=== PATIENT | female | born 1955 | race Hispanic/Latino ===

== ENCOUNTER 2018-07-18 06:37 | Day surgery (SDC) | payer OTHER ==
--- NOTE | 2018-07-18 07:13 | CP.PCM.PN ---
Subjective - Date & Time of Evaluation Date of Evaluation: 07/18/18 Time of Evaluation: 07:13 - Subjective Subjective: [place] [facility] [employer] [facility] patient report reviewed, no CDS. Patient counseled on the risks of addiction, physical or psychological dependence, and overdose associated with opioid drugs and the danger of taking opioid drugs with alcohol and other central nervous system depressants, and cautioned patient on storage and disposal.
[2018-07-18] MEDS ORDERED: Midazolam 2 MG/2 ML VIAL ONE (07:16)
[2018-07-18] MEDS ORDERED: Rocuronium 10 mg/ml (5 ml) ONE (07:16)
[2018-07-18] MEDS ORDERED: Propofol 10 mg/ml Inj (20 ML) ONE (07:16)
[2018-07-18] MEDS ORDERED: Succinylcholine Chloride 20 mg/ml Syr (5 ml) IV ONE (07:17)
[2018-07-18] MEDS ORDERED: Ropivacaine 0.5% 30ML IV ONE (07:19)
[2018-07-18] MEDS ORDERED: MethylPREDNISolone Depo 40 mg/ml Inj ONE (07:28)
[2018-07-18] MEDS ORDERED: EPINEPHrine 1 mg/ml (1:1000) Inj ONE ×2 (07:28)
[2018-07-18] MEDS ORDERED: Bupivacaine 0.5% Inj(30mL) ONE (07:29)
[2018-07-18] MEDS ORDERED: Lidocaine 1% Inj (20ml) ONE (07:29)
[2018-07-18 07:43] VITALS: BMI 35.5
[2018-07-18] MEDS ORDERED: Lidocaine 4% (Laryng-O-Jet) Kit MM ONE (08:07)
[2018-07-18] MEDS ORDERED: Sodium Chloride 0.9% 10 ML IV ONE (08:23)
[2018-07-18] MEDS ORDERED: ePHEDrine 50 mg/ml Inj ONE (08:23)
[2018-07-18] MEDS ORDERED: Dexamethasone 4 mg/1 ml ONE (08:38)
[2018-07-18] MEDS ORDERED: Lactated Ringer's 1,000 ML IV ONE (09:15)
[2018-07-18] MEDS ORDERED: Albuterol HFA 90 mcg/actuation (8 g) ONE (09:32)
[2018-07-18] MEDS ORDERED: Neostigmine 1:1000 (1 mg/ml) Inj ONE (10:02)
[2018-07-18] MEDS ORDERED: Morphine 1 mg/ml preservative-free Inj(Duramorph) ONE (10:02)
[2018-07-18] MEDS ORDERED: Bacitracin Ointment 30 GM TUBE ONE (10:13)
[2018-07-18] MEDS ORDERED: HYDROmorphone 0.5 mg/0.5 ml ISec IVP PRN (10:36)
[2018-07-18] MEDS ORDERED: Dexamethasone 4 mg/1 ml IVP PRN (10:36)
[2018-07-18] MEDS: HYDROmorphone 0.5 mg/0.5 ml ISec IVP PRN ×3 (11:24→11:55)
--- NOTE | 2018-07-18 11:41 | PCM.SURG1 ---
Surgeon's Initial Post Op Note - Surgeon's Notes Surgeon: Dianne Manager Mba: NAINA Cameron Type of Anesthesia: General Endo Anesthesia Administered By: Dr Omari Mace Pre-Operative Diagnosis: tear ACL (partial). medial comparmtne arthritis(chondral damage medial femoral condyle). tear medial/lateral meniscus Operative Findings: partial tear ACL. tear medial/lateral meniscus. complete chondral eburnation mediakl femoral condyle (medial compartment arthritis) Post-Operative Diagnosis: as above Operation Performed: surgical arthroscopy- repair/reconstruction ACL. surg arthroscopy/ microfracture medial femoral condyle. surg arthroscopy partial medial/lateral meniscectomy. aurg arthroscopy partial tricompartmental synovectomy. intraarticular injection Specimen/Specimens Removed: synovium/cartilage Estimated Blood Loss: EBL {In ML}: 12 Blood Products Given: N/A Drains Used: No Drains Post-Op Condition: Fair Date of Surgery/Procedure: 07/18/18 Time of Surgery/Procedure: 09:00 (time in room/naetshesia indcution time 0800)
[2018-07-18] MEDS ORDERED: Oxycodone/Acetaminophen 5/325 mg Tab PO PRN (11:44)
[2018-07-18 12:36] VITALS: RESP 14
[2018-07-18 13:35] VITALS: TEMP 98
[2018-07-18] MEDS ORDERED: Oxycodone/Acetaminophen 5/325 mg Tab PO ONE (13:45)
[2018-07-18 14:29] VITALS: BP 135/68; PULSE 78; O2SAT 95
--- NOTE | 2018-07-18 15:27 | OP ---
PROCEDURE DATE: 07/18/2018 PREOPERATIVE DIAGNOSES: 1. 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 2. Tear of medial lateral meniscus. POSTOPERATIVE DIAGNOSES: 1. Partial tear, anterior cruciate ligament. 2. Chondral damage with eburnation of the cartilage of the medial femoral condyle. 3. Tear of medial and tear of lateral meniscus. 4. Tricompartmental synovitis. OPERATIVE PROCEDURES: 1. Surgical arthroscopy, repair and reconstruction of the anterior cruciate ligament, right knee. 2. Surgical arthroscopy microfracture, medial femoral condyle, right knee. 3. Surgical arthroscopy, partial medial and lateral meniscectomy. 4. Surgical arthroscopy, partial tricompartmental synovectomy. 5. Allograft bone grafting to the origin of the anterior cruciate ligament, intra-articular injection, application of Sha Molina compression dressing, and knee immobilizer. SURGEON: Ramón Dean MD MANAGER CUSTOM: KEIRA Vargas, Certified Registered Nursing Marketing And Public Relations Manager. ANESTHESIA: General endotracheal anesthesia. ANESTHESIOLOGIST: Dr. Omari Mace. SPECIMENS REMOVED: Synovium and cartilage. BLOOD LOSS: 12 mL. BLOOD PRODUCTS GIVEN: None. DRAINS: None. POSTOPERATIVE CONDITION: Stable. TIME OF THE PROCEDURE: Incision time 0900, time in the room and anesthesia Induction time 0800. 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 The patient has failed conservative management consisting of intra-articular injection, weight loss, activity modification. Pros, cons, risks and benefits of surgical approach were discussed at length, the possibility of partial repair of the partial anterior cruciate ligament rupture with notchplasty, surgical arthroscopy, and extensive debridement, microfracture, partial medial and lateral meniscectomy were discussed at length. The possibility of later secondary replacement arthroplasty was discussed, the possibility of mechanical failure, infection, thromboembolic disease, possibility of secondary or tertiary surgery was discussed. The patient can no longer stand the discomfort and wished the surgery to be accomplished. DESCRIPTION OF PROCEDURE: After having obtained informed consent in the above fashion, after having identified the side, site, and procedure and a critical pause/time-out, after the satisfactory induction of the anesthetic, the patient identified as Marialuisa Watson in the supine position with all bony prominences well padded. The right lower extremity was prepped and free draped in usual fashion for lower extremity surgery. The lateral post was employed. Again after having identified side, site, and procedure, the right lower extremity was prepped and draped in the usual fashion for lower extremity surgery. After again having obtained informed consent, after performing a critical pause/time-out, after exsanguinating the limb using a 6-inch Esmarch bandage and tourniquet which had been applied was inflated to 350 mmHg, the joint was insufflated from an anterolateral portal using #18-gauge spinal needle with 1% lidocaine without epinephrine followed by #11 blade followed by spreading, introduction of the blunt trocar. With the arthroscope introduced, examination of the joint commences. There was found to be a dense tricompartmental synovitis. Triangulation was accomplished using #18-gauge spinal needle followed by #11 blade followed by spreading, followed by introduction of blunt trocar with the arthroscope anterolaterally. A careful partial tricompartmental synovectomy was accomplished, both to improve visualization and to ablate irritative tissue. With the arthroscope anterolaterally, a careful partial tricompartmental synovectomy was completed. Bleeding points were controlled with the arthroscopic wand. With the arthroscope anterolaterally, there was found to be marked encroachment of the intercondylar notch with osteophytes, and there was found to be a partial tear, which was quite traumatic of the anterior cruciate ligament. With the arthroscope anterolaterally, with the surgeon exerting a gentle valgus stress exposing the entire medial meniscus, great care was taken not to injure the medial collateral ligament. Using a combination of the straight biting basket forceps and the upbiting basket forceps, a partial medial meniscectomy was accomplished. With the arthroscope anterolaterally with the surgeon exerting a gentle valgus stress, using a combination of the straight biting basket forceps and the upbiting basket forceps, a partial medial meniscectomy was accomplished using the arthroscopic shaver. There was found to be evidence of a tear in the deep posterior horn. Please refer to the video photographs. This was accomplished by excising the base and using a combination of the arthroscopic shaver and the arthroscopic wand to perform a complete partial lateral meniscectomy. A chondroplasty of the medial femoral condyle was accomplished. There was found to be evidence of loose articular cartilage in an approximately 2-cm diameter area of the medial femoral condyle. The arthroscopic shaver having been accomplished, chondroplasty having been accomplished, there was found be evidence of eburnation to subchondral bone. This having been accomplished, the partial medial meniscectomy was completed using the 3.4 mm [employer] suction punch. This having been accomplished, partial medial meniscectomy was accomplished with smoothing, the inner free edge was smoothed using the arthroscopic wand. With the arthroscope anterolaterally with the knee in [id number] position, there was found to be evidence of an extensive tear of the lateral meniscus. The arthroscope was now transferred anteromedially with the knee in [id number] position, using a combination of the arthroscopic shaver, a partial lateral meniscectomy was accomplished. The arthroscope was transferred back anterolaterally and anterocentral portal was accomplished using #18-gauge spinal needle followed by #11 blade followed by spreading. With the arthroscope anterolaterally, using a combination of straight biting basket forceps and the side-biting basket forceps, a partial lateral meniscectomy was accomplished. With the arthroscope anteromedially, using the arthroscopic shaver, a partial lateral meniscectomy was completed. Careful partial tricompartmental synovectomy was completed. The arthroscope having been placed anterolaterally, tricompartmental synovectomy was completed. With the arthroscope anterolaterally, the inner free edges of the lateral meniscus was smoothed using the arthroscopic wand. There was no evidence of peripheral separation. At this point in time, the anterior cruciate repair will be addressed with the arthroscope anterolaterally. The one-quarter inch osteotome was placed anterocentrally and an extensive notchplasty was initiated with the quarter-inch curved osteotome. With the arthroscope anterolaterally, using the arthroscopic barrel bur, an extensive notchplasty of the medial wall of the lateral femoral condyle was accomplished, past the resident's ridge to the footprint of the anterior cruciate ligament. This having been accomplished, the anterior cruciate ligament with the arthroscope anterolaterally, a gathering stitch was placed at the base of the anterior cruciate ligament partial rupture. The entire anterior cruciate ligament was ensnared. This was brought out in a modified Kwan-type fashion using the scorpion. With the knee in approximately 75 degrees of flexion, Bunnelling to the origin of the anterior cruciate ligament was accomplished. Please refer to the video photographs. The sutures were taken out of the medial portal. A second medial portal was accomplished using #18-gauge spinal needle and this was the working portal for the repair of the anterior cruciate ligament. A second cinch suture was placed also at the base and brought up in the same fashion with lesser number of throws, so as not to compromise the blood supply in the anterior cruciate ligament. At this point in time, with the knee flexed approximately 95 degrees from the inferior medial portal, the guidewire was introduced, reaming was accomplished through approximately 25 mm. This having been accomplished, the reaming having been accomplished, the sutures were loaded into the SwiveLock anchor. The SwiveLock anchor was impacted into the reamed aperture at approximately 20 to 25 degrees short of terminal extension. The SwiveLock anchor was introduced, and at this point in time, it was clipped and the repair was found to be excellent. Using the arthroscopic wand at a very low thermal frequency, coagulation was accomplished as well, and this having been accomplished, the position was found to be excellent. The arthroscope was now placed anterolaterally with the surgeon exerting a gentle valgus stress after arthroscopic debridement of the chondral lesion. Using the arthroscopic pick around the borders, a microfracture technique was accomplished first circumventing the lesion around the borders and then in a honeycomb-type fashion through to the subchondral plate. Microfracture having been accomplished, loose cartilaginous fragments having been accomplished and removed, a careful partial tricompartmental synovectomy was completed. The knee joint was thoroughly irrigated, and at this point in time, was drained. An autograft allograft bone grafting was accomplished to the drill hole at the footprint of the anterior cruciate ligament. This was capped using a peanut, which was again taken out of the joint. Closure of the portals was in layers with interrupted Vicryl and nylon. Intra-articular injection of Marcaine, Duramorph, and Depo-Medrol was accomplished. Sha Molina compression dressing and knee immobilizer were applied. Neurocirculatory status was intact in recovery. The operation could not have been completed without the assistantship of the certified registered nursing first helper. Ramón Dean MD [facility] # [id number]
== END 2018-07-18 17:43 | disposition home or self-care (01) ==
LOC: MERGE 06:37 → H.OPSURG 06:37
PROVIDERS: ATTEND Orthopaedic Surgery
DX: M17.11 Unilateral primary osteoarthritis, right knee (principal); M65.861 Other synovitis and tenosynovitis, right lower leg
CPT/HCPCS: 29876; 29880; 29888; 88305; 97161; C1713; G8978; G8979; G8980; J0171; J0690; J1030; J1100; J1170; J2001; J2250; J2270; J2405; J2704; J2710; J3010; J7030; J7120